=== PATIENT | male | born 1990 | race Caucasian/White ===

== ENCOUNTER 2017-04-11 10:46 | Inpatient (IN) ==
--- NOTE | 2017-04-11 11:18 | Emergency Department Note ---
Disposition Clinical Impression: Suicidal ideation, Auditory hallucination, Visual hallucination Disposition: Admitted As Inpatient Condition: Good Referrals: NONE,PCP [Primary Care Provider] - Forms: ED Satisfaction Letter Time of Disposition: 14:13 Psych HPI - General Chief Complaint: ED Psychiatric Symptoms Stated Complaint: Hearing Voices Time Seen by Provider: 04/11/17 10:55 Source: patient Mode of arrival: ambulatory Limitations: no limitations Nursing Notes Reviewed: Yes Vital Signs Reviewed: Yes - History of Present Illness HPI Narrative: 27 year old male with extensive pysch history presents to the ED with complaints of hearing voices and that those voice are telling him to kill himself. He states that they show him images of him hanging himself in the hess and telling him to do it. He states that he has had these voices for the past 1.5 years and has admitted multiple admission to the pysch unit here. Amandeep states that he is concerned that he will go through with the plan. No other complaint at this time. - Related Data Previous Rx's Medication Instructions Recorded Venlafaxine HCl [Effexor Xr] 75 mg PO DAILY #30 [id number] 01/17/16 Allergies Allergy/AdvReac Type Severity Reaction Status Date / Time No Known Allergies Allergy Verified 12/27/15 08:30 Constitutional: Denies: fever, chills, weakness, weight change Eyes: Denies: eye pain, eye discharge, vision change ENT ED: Denies: ear pain, throat pain, dental pain, hearing loss, epistaxis, congestion, dysphagia Cardiovascular: Denies: chest pain, palpitations, dyspnea on exertion, edema, syncope Respiratory: Denies: cough, dyspnea, wheezes, hemoptysis, stridor Gastrointestinal: Denies: abdominal pain, nausea, vomiting, diarrhea, constipation, hematemesis, melena, hematochezia Genitourinary: Denies: urgency, dysuria, frequency, hematuria Musculoskeletal: Denies: back pain, neck pain, arthralgia, myalgia Integumentary: Denies: rash, abrasion, lesions Neurological: Denies: headache, weakness, numbness, paresthesias, confusion, abnormal gait, vertigo Psychiatric: Reports: suicidal thoughts, auditory hallucinations, visual hallucinations. Denies: anxiety, depression, homicidal thoughts Endocrine: Denies: fatigue Hematological/Lymphatic: Denies: easy bleeding, easy bruising Allergic/Immunologic: Denies: facial swelling, urticaria Past Medical History - Past Medical History Medical history: Reports: no medical history Surgical history: Reports: no surgical history Psychiatric history: Reports: anxiety, schizophrenia, previous psychiatric hospitalization - Social History Smoking Status: Current every day smoker Smokeless Tobacco Status: No Alcohol use: Reports: occasionally Drug use: Reports: cocaine Physical Exam - General Limitations: no limitations General appearance: alert, in no apparent distress - Head Head exam: atraumatic, normocephalic, normal inspection - Eye Eye exam: Present: normal appearance, PERRL, EOMI - Expanded Eye Exam Pupils: Left: reactive - ENT ENT exam: normal exam, normal oropharynx, mucous membranes moist - Expanded ENT Exam External ear exam: Present: normal external inspection Mouth exam: Present: normal external inspection Teeth exam: Present: normal inspection Throat exam: Present: normal inspection - Neck Neck exam: Present: normal inspection, full ROM, trachea midline - Chest Chest inspection: Present: normal inspection, symmetric chest wall rise - Respiratory Respiratory exam: Present: normal lung sounds bilaterally - Cardiovascular Cardiovascular exam: Present: regular rate, normal rhythm, normal heart sounds - Abdominal Exam Abdominal exam: Present: soft, Non-Tender. Absent: tenderness, distention, guarding, rebound, rigidity - Extremities Exam Extremities exam: Present: normal inspection, full ROM. Absent: tenderness, pedal edema - Expanded Upper Extremity Exam Shoulder exam: Present: normal inspection, full ROM Arm exam: Present: normal inspection, full ROM Elbow exam: Present: normal inspection, full ROM Forearm/Wrist exam: Present: normal inspection, full ROM Hand exam: Present: normal inspection, full ROM Vascular exam: Normal: capillary refill, radial pulse - Expanded Lower Extremity Exam Hip/Pelvis exam: Present: normal inspection, full ROM Upper leg exam: Present: normal inspection, full ROM Knee exam: Present: normal inspection, full ROM Lower leg exam: Present: normal inspection, full ROM Ankle exam: Present: normal inspection, full ROM Foot/toe exam: Present: normal inspection, full ROM Neurovascular/Tendon exam: Absent: motor deficit, sensory deficit, tendon deficit - Back Exam Back exam: Present: normal inspection, full ROM. Absent: tenderness - Neurological Exam Neurological exam: Present: alert, oriented X3 - Expanded Neurological Exam Patient oriented to: Present: person, place, time Coma Scale Eye Opening: Spontaneous Coma Scale Motor Response: Obeys Commands Coma Scale Verbal Response: Oriented Coma Scale Total: 15 - Psychiatric Psychiatric exam: Present: normal affect, normal mood - Skin Skin exam: Present: warm, dry, intact, normal color Course Course Narrative: we will do medical clearance including a HCT and then consult 1A - Reevaluation(s) Reevaluation #1: amandeep is medically cleared. 1A consult has been placed. Time: 12:31 - Consultations Consultation #1: [facility] has acepted patient for admission. Time: 14:12 Vital Signs Temperature 99.3 F 04/11/17 10:50 Pulse Rate 106 04/11/17 10:50 Respiratory Rate 16 04/11/17 10:50 Blood Pressure 134/84 04/11/17 10:50 O2 Sat by Pulse Oximetry 96 04/11/17 10:50 Temperature 99.3 F 04/11/17 10:50 Pulse Rate 106 04/11/17 10:50 Respiratory Rate 16 04/11/17 10:50 Blood Pressure 134/84 04/11/17 10:50 O2 Sat by Pulse Oximetry 96 04/11/17 10:50 Oxygen Delivery Oxygen Delivery Room Air Psych - Lab Data Result diagrams: 04/11/17 11:12 04/11/17 11:12 Lab Results 04/11/17 04/11/17 04/11/17 Range/Units 11:12 11:12 11:30 WBC 5.6 (4.3-11.1) K/mcL RBC 4.43 (4.19-5.50) M/mcL Hgb 13.2 (12.9-16.9) g/dL Hct 39.8 (37.5-50.1) % MCV 89.8 (83.0-100.0) fL MCH 29.8 (28.0-33.3) pg MCHC 33.2 (31.6-35.5) g/dL RDW 12.4 (11.5-14.5) % Plt Count 380 (140-400) K/mcL MPV 9.9 (9.4-12.4) fL Immature Gran % 0.5 (0-4) % Seg Neutrophils % 71.6 % Lymphocytes % 13.7 % Monocytes % 13.0 % Eosinophils % 0.7 % Basophils % 0.5 % Neutrophils # 4.0 (1.6-8.9) K/mcL Lymphocytes # 0.8 (0.6-4.6) K/mcL Monocytes # 0.7 (0.0-1.3) K/mcL Eosinophils # 0.0 (0.0-0.6) K/mcL Basophils # 0.0 (0.0-0.2) K/mcL Immature Plt Fraction 3.2 (1.1-6.1) % Sodium 137 (136-145) mEq/L Potassium 3.4 L (3.5-4.5) mEq/L Chloride 101 (98-109) mEq/L Carbon Dioxide 26 (19-29) mEq/L BUN 10 (8-26) mg/dL Creatinine 1.01 (0.72-1.25) mg/dL Est GFR ( Amer) > 60 (> 60) Est GFR (Non-Af Amer) > 60 (> 60) BUN/Creatinine Ratio 10 (6-26) Glucose 84 (70-99) mg/dL Calculated Osmolality 282 (280-300) Calcium 9.7 (8.6-10.8) mg/dL Urine Color Dark Yellow (Yellow) Urine Clarity Cloudy A (Clear) Urine pH 6.0 (5.0-8.0) pH Units Ur Specific Powell > 1.030 H (1.010-1.025) Urine Protein 100 H (Neg-Trace) mg/dL Urine Glucose (UA) Normal (Normal) mg/dL Urine Ketones Trace H (Negative) mg/dL Urine Blood Moderate H (Negative) Urine Nitrite Negative (Negative) Urine Bilirubin Small H (Negative) Urine Urobilinogen Normal (Normal) mg/dL Ur Leukocyte Esterase Negative (Negative) Urine Microscopic RBC 15-30 H (0-3) per hpf Urine Microscopic WBC 0-3 (0-3) per hpf Ur Squamous Epith Cells Many H (None-Few) per lpf Urine Bacteria None Seen (None-Few) per hpf Hyaline Casts Test Not Performed Urine Mucus Moderate H (Few) Salicylates < 5.0 L (15-30) mg/dL Urine Opiates Screen (Pyqzem=737) ng/mL Acetaminophen < 1.0 L (10-30) mcg/mL Ur Barbiturates Screen (Rlorhv=608) ng/mL Ur Phencyclidine Scrn (Cutoff=25) ng/mL Ur Amphetamines Screen (Okvwkm=1470) ng/mL U Benzodiazepines Scrn (Owiqle=273) ng/mL Urine Cocaine Screen (Cutoff= 300) ng/mL U Marijuana (THC) Screen (Cutoff = 50) ng/mL Ethyl Alcohol < 10 (0-10) mg/dL 04/11/17 Range/Units 11:30 WBC (4.3-11.1) K/mcL RBC (4.19-5.50) M/mcL Hgb (12.9-16.9) g/dL Hct (37.5-50.1) % MCV (83.0-100.0) fL MCH (28.0-33.3) pg MCHC (31.6-35.5) g/dL RDW (11.5-14.5) % Plt Count (140-400) K/mcL MPV (9.4-12.4) fL Immature Gran % (0-4) % Seg Neutrophils % % Lymphocytes % % Monocytes % % Eosinophils % % Basophils % % Neutrophils # (1.6-8.9) K/mcL Lymphocytes # (0.6-4.6) K/mcL Monocytes # (0.0-1.3) K/mcL Eosinophils # (0.0-0.6) K/mcL Basophils # (0.0-0.2) K/mcL Immature Plt Fraction (1.1-6.1) % Sodium (136-145) mEq/L Potassium (3.5-4.5) mEq/L Chloride (98-109) mEq/L Carbon Dioxide (19-29) mEq/L BUN (8-26) mg/dL Creatinine (0.72-1.25) mg/dL Est GFR ( Amer) (> 60) Est GFR (Non-Af Amer) (> 60) BUN/Creatinine Ratio (6-26) Glucose (70-99) mg/dL Calculated Osmolality (280-300) Calcium (8.6-10.8) mg/dL Urine Color (Yellow) Urine Clarity (Clear) Urine pH (5.0-8.0) pH Units Ur Specific Powell (1.010-1.025) Urine Protein (Neg-Trace) mg/dL Urine Glucose (UA) (Normal) mg/dL Urine Ketones (Negative) mg/dL Urine Blood (Negative) Urine Nitrite (Negative) Urine Bilirubin (Negative) Urine Urobilinogen (Normal) mg/dL Ur Leukocyte Esterase (Negative) Urine Microscopic RBC (0-3) per hpf Urine Microscopic WBC (0-3) per hpf Ur Squamous Epith Cells (None-Few) per lpf Urine Bacteria (None-Few) per hpf Hyaline Casts Urine Mucus (Few) Salicylates (15-30) mg/dL Urine Opiates Screen Negative (Tnpgaj=781) ng/mL Acetaminophen (10-30) mcg/mL Ur Barbiturates Screen Negative (Qsxlfg=002) ng/mL Ur Phencyclidine Scrn Negative (Cutoff=25) ng/mL Ur Amphetamines Screen Negative (Wsruis=1930) ng/mL U Benzodiazepines Scrn Negative (Vxxpxj=914) ng/mL Urine Cocaine Screen Negative (Cutoff= 300) ng/mL U Marijuana (THC) Screen Negative (Cutoff = 50) ng/mL Ethyl Alcohol (0-10) mg/dL Psychiatric Medical Clearance - Medical Clearance Checklist Medical History: No Social History Section defined Current Vitals: Last Vital Signs Temp 99.3 F 04/11/17 10:50 Pulse 106 04/11/17 10:50 Resp 16 04/11/17 10:50 BP 134/84 04/11/17 10:50 Pulse Ox 96 04/11/17 10:50 Psychiatric Lab Panel: Drug Levels and Toxicity 04/11/17 04/11/17 11:12 11:30 Urine Opiates Screen Negative Acetaminophen < 1.0 L Ur Barbiturates Screen Negative Ur Phencyclidine Scrn Negative Ur Amphetamines Screen Negative U Benzodiazepines Scrn Negative Urine Cocaine Screen Negative U Marijuana (THC) Screen Negative Ethyl Alcohol < 10 Abnormal Labs: Abnormal lab results Potassium 3.4 mEq/L (3.5-4.5) L 04/11/17 11:12 Urine Clarity Cloudy (Clear) A 04/11/17 11:30 Ur Specific Powell > 1.030 (1.010-1.025) H 04/11/17 11:30 Urine Protein 100 mg/dL (Neg-Trace) H 04/11/17 11:30 Urine Ketones Trace mg/dL (Negative) H 04/11/17 11:30 Urine Blood Moderate (Negative) H 04/11/17 11:30 Urine Bilirubin Small (Negative) H 04/11/17 11:30 Urine Microscopic RBC 15-30 per hpf (0-3) H 04/11/17 11:30 Ur Squamous Epith Cells Many per lpf (None-Few) H 04/11/17 11:30 Urine Mucus Moderate (Few) H 04/11/17 11:30 Salicylates < 5.0 mg/dL (15-30) L 04/11/17 11:12 Acetaminophen < 1.0 mcg/mL (10-30) L 04/11/17 11:12 Statement of Medical Clearance: I have evaluated the patient, reviewed diagnostic information, and certify that the patient's medical condition is sufficiently stable that transfer to the psychiatric unit does not pose a significant risk of deterioration.
[2017-04-11 11:25] LABS: Basophils % 0.5 %; Eosinophils % 0.7 %; Hematocrit 39.8 % (37.5-50.1); Hemoglobin 13.2 g/dL (12.9-16.9); Immature Granulocytes % 0.5 % (0-4); Immature Platelets 3.2 % (1.1-6.1); Lymphocytes # 0.8 K/mcL (0.6-4.6); Lymphocytes % 13.7 %; Mean Corpuscular HGB Conc 33.2 g/dL (31.6-35.5); Mean Corpuscular Hemoglobin 29.8 pg (28.0-33.3); Mean Corpuscular Volume 89.8 fL (83.0-100.0); Mean Platelet Volume 9.9 fL (9.4-12.4); Monocytes # 0.7 K/mcL (0.0-1.3); Platelet Count 380 K/mcL (140-400); Red Blood Count 4.43 M/mcL (4.19-5.50); Red Cell Distribution Width 12.4 % (11.5-14.5); Segmented Neutrophils % 71.6 %
[2017-04-11 11:36] LABS: BUN/Creatinine Ratio 10 (6-26); Blood Urea Nitrogen 10 mg/dL (8-26); Calcium 9.7 mg/dL (8.6-10.8); Carbon Dioxide 26 mEq/L (19-29); Chloride 101 mEq/L (98-109); Glucose 84 mg/dL (70-99); Osmolality,Calculated 282 (280-300); Potassium 3.4 mEq/L (3.5-4.5); Sodium 137 mEq/L (136-145); eGFR For African Americans > 60 (> 60); eGFR For Non-African Americans > 60 (> 60)
[2017-04-11 11:37] LABS: Acetaminophen < 1.0 mcg/mL (10-30); Ethanol < 10 mg/dL (0-10); Salicylate < 5.0 mg/dL (15-30)
[2017-04-11 11:43] LABS: Amphetamine Screen,Urine Negative ng/mL (Cutoff=1000); Barbiturate Screen,Urine Negative ng/mL (Cutoff=200); Benzodiazepines Screen,Urine Negative ng/mL (Cutoff=200); Bilirubin,Urine Small (Negative); Blood,Urine Moderate (Negative); Cannabinoid Screen,Urine Negative ng/mL (Cutoff = 50); Clarity,Urine Cloudy (Clear); Cocaine Screen,Urine Negative ng/mL (Cutoff= 300); Color,Urine Dark Yellow (Yellow); Glucose,Urine (UA) Normal (Normal); Ketones,Urine Trace mg/dL (Negative); Leukocyte Esterase,Urine Negative (Negative); Nitrite,Urine Negative (Negative); Opiate Screen,Urine Negative ng/mL (Cutoff=300); Phencyclidine Screen,Urine Negative ng/mL (Cutoff=25); Protein,Urine 100 mg/dL (Neg-Trace); Specific Gravity,Urine > 1.030 (1.010-1.025); Urobilinogen,Urine Normal (Normal)
[2017-04-11 11:45] LABS: Bacteria,Urine None Seen per hpf (None-Few); RBC,Urine 15-30 per hpf (0-3); Squamous Epithelial Cell,Urine Many per lpf (None-Few); WBC,Urine 0-3 per hpf (0-3)
[2017-04-11 11:47] LABS: Mucus,Urine Moderate (Few)
[2017-04-11] MEDS ORDERED: *HR* LORazepam 2 MG/ML VIAL IM PRN (16:43)
[2017-04-11] MEDS ORDERED: MOM Conc 10 ML UD.LIQ PO PRN (16:43)
[2017-04-11] MEDS ORDERED: *HR* LORazepam 1 MG TABLET PO PRN (16:43)
[2017-04-11] MEDS ORDERED: hydrOXYzine pamoate 25 MG CAPSULE PO PRN (16:43)
[2017-04-11] MEDS ORDERED: Haloperidol Lactate 5 MG/ML VIAL IM PRN (16:43)
[2017-04-11] MEDS ORDERED: Acetaminophen 325 MG TABLET PO PRN (16:43)
[2017-04-11] MEDS ORDERED: Mag Hydrox/Al Hydrox/Simeth 30 ML UDC PO PRN (16:43)
[2017-04-11] MEDS ORDERED: traZODone 50 MG TABLET PO PRN (16:43)
--- NOTE | 2017-04-12 14:31 | Psychiatry History & Physical ---
Date of Encounter: 04/12/17 Time of Encounter: 14:28 History of Present Illness Patient Stated Chief Complaint: "i was hearing voices telling me to kill myself " Medicare Admission Attestation: For traditional Medicare patients the provided hospital inpatient services are reasonable and necessary and in the case of services not specified as inpatient -only under 42 CFR 419.22 (n), that they are appropriately provided as inpatient services in accordance 42 CFR 412.3. For Critical Access Hospital the patient may reasonably be expected to be discharged or transferred to a hospital within 96 hours after admission to the Critical Access Hospital. Admitted From: Emergency Dept History of Present Illness: Mr. Smith is a 27 year old male admitted to [facility] for safety and stabalization. On approach this morning patient was as bad he was not cooperative to come for evaluation patient was a very poor historian very vague when answering questions patient reports he is here at the hospital because he was "hearing voices telling me to kill myself" patient reports he has been hearing these voices for the past year and a half patient was not able to report any current stressors or triggers he reports he does have family but he is not in connection with any of them he reports he is homeless patient reports that he has been hearing these voices and has tried multiple medications the past which she is not able to remember what he was on or what works for him and then reports that "none of the medications work". Went through a list of medications with patient and patient reported that he has not tried Prolixin once that was mentioned him patient was in agreement to try this as well. Past Med Surg Social Fam HX - Past Medical History Medical history: no medical history - Past Psychiatric History Psychiatric history: Reports: schizophrenia, previous psychiatric hospitalization Past psychiatric history details: inpatient hospitalizations: pt reports he was hospitalized on 1A before SA: pt reports 1 yaer ago he "took a razor to my arm" Past psych meds: "all of them" Current psych meds: denies Pt reports he is homeless - Past Surgical History Surgical History: no surgical history - Social History Smoking Status: Current every day smoker Smokeless Tobacco Status: No Alcohol use: occasionally Drug use: cocaine Medications & Allergies No Known Home Drugs 04/11/17 [History] 3 Allergy/AdvReac Type Severity Reaction Status Date / Time No Known Allergies Allergy Verified 12/27/15 08:30 Review of Systems Psychiatric: Reports: abnormal sleep pattern, auditory hallucinations, difficulty concentrating, irritability, mood swings Mental Status Exam Patient orientation: Yes Person, Yes Time, Yes Place Level of alertness: Other Patient appearance: Unkempt Behavior: anxious, uncooperative Psychomotor activity: Slowed Eye contact: Minimal Contact Mood description: Anxious, Labile, Irritable Affect description: flat Thought process: Loose Associations, Tangential Thought content: Yes Suicidal ideation, Yes Preoccupation Perceptual disturbances: Yes Auditory hallucinations Attention span: Unable to Focus, Unable to Sustain Attention Memory description: Immediate Impaired, Recent Impaired Patient reliability: Questionable Historian Exam - HEENT Head exam IM: Present: normal inspection Eye exam IM: Present: EOMI - Neurological Neurological exam IM: Present: alert Results - Vital Signs Vital signs: Temp Pulse Resp BP Pulse Ox 98.4 F 68 16 126/72 96 04/12/17 09:00 04/12/17 09:00 04/12/17 09:00 04/12/17 09:00 04/11/17 10:50 - Labs Labs: Laboratory Last Values WBC 5.6 K/mcL (4.3-11.1) 04/11/17 11:12 RBC 4.43 M/mcL (4.19-5.50) 04/11/17 11:12 Hgb 13.2 g/dL (12.9-16.9) 04/11/17 11:12 Hct 39.8 % (37.5-50.1) 04/11/17 11:12 MCV 89.8 fL (83.0-100.0) 04/11/17 11:12 MCH 29.8 pg (28.0-33.3) 04/11/17 11:12 MCHC 33.2 g/dL (31.6-35.5) 04/11/17 11:12 RDW 12.4 % (11.5-14.5) 04/11/17 11:12 Plt Count 380 K/mcL (140-400) 04/11/17 11:12 MPV 9.9 fL (9.4-12.4) 04/11/17 11:12 Immature Gran % 0.5 % (0-4) 04/11/17 11:12 Seg Neutrophils % 71.6 % 04/11/17 11:12 Lymphocytes % 13.7 % 04/11/17 11:12 Monocytes % 13.0 % 04/11/17 11:12 Eosinophils % 0.7 % 04/11/17 11:12 Basophils % 0.5 % 04/11/17 11:12 Neutrophils # 4.0 K/mcL (1.6-8.9) 04/11/17 11:12 Lymphocytes # 0.8 K/mcL (0.6-4.6) 04/11/17 11:12 Monocytes # 0.7 K/mcL (0.0-1.3) 04/11/17 11:12 Eosinophils # 0.0 K/mcL (0.0-0.6) 04/11/17 11:12 Basophils # 0.0 K/mcL (0.0-0.2) 04/11/17 11:12 Immature Plt Fraction 3.2 % (1.1-6.1) 04/11/17 11:12 Sodium 137 mEq/L (136-145) 04/11/17 11:12 Potassium 3.4 mEq/L (3.5-4.5) L 04/11/17 11:12 Chloride 101 mEq/L (98-109) 04/11/17 11:12 Carbon Dioxide 26 mEq/L (19-29) 04/11/17 11:12 BUN 10 mg/dL (8-26) 04/11/17 11:12 Creatinine 1.01 mg/dL (0.72-1.25) 04/11/17 11:12 Est GFR ( Amer) > 60 (> 60) 04/11/17 11:12 Est GFR (Non-Af Amer) > 60 (> 60) 04/11/17 11:12 BUN/Creatinine Ratio 10 (6-26) 04/11/17 11:12 Glucose 84 mg/dL (70-99) 04/11/17 11:12 Calculated Osmolality 282 (280-300) 04/11/17 11:12 Calcium 9.7 mg/dL (8.6-10.8) 04/11/17 11:12 Urine Color Dark Yellow (Yellow) 04/11/17 11:30 Urine Clarity Cloudy (Clear) A 04/11/17 11:30 Urine pH 6.0 pH Units (5.0-8.0) 04/11/17 11:30 Ur Specific Golden > 1.030 (1.010-1.025) H 04/11/17 11:30 Urine Protein 100 mg/dL (Neg-Trace) H 04/11/17 11:30 Urine Glucose (UA) Normal mg/dL (Normal) 04/11/17 11:30 Urine Ketones Trace mg/dL (Negative) H 04/11/17 11:30 Urine Blood Moderate (Negative) H 04/11/17 11:30 Urine Nitrite Negative (Negative) 04/11/17 11:30 Urine Bilirubin Small (Negative) H 04/11/17 11:30 Urine Urobilinogen Normal mg/dL (Normal) 04/11/17 11:30 Ur Leukocyte Esterase Negative (Negative) 04/11/17 11:30 Urine Microscopic RBC 15-30 per hpf (0-3) H 04/11/17 11:30 Urine Microscopic WBC 0-3 per hpf (0-3) 04/11/17 11:30 Ur Squamous Epith Cells Many per lpf (None-Few) H 04/11/17 11:30 Urine Bacteria None Seen per hpf (None-Few) 04/11/17 11:30 Hyaline Casts Test Not Performed 04/11/17 11:30 Urine Mucus Moderate (Few) H 04/11/17 11:30 Salicylates < 5.0 mg/dL (15-30) L 04/11/17 11:12 Urine Opiates Screen Negative ng/mL (Uvfkml=389) 04/11/17 11:30 Acetaminophen < 1.0 mcg/mL (10-30) L 04/11/17 11:12 Ur Barbiturates Screen Negative ng/mL (Jrrfep=360) 04/11/17 11:30 Ur Phencyclidine Scrn Negative ng/mL (Cutoff=25) 04/11/17 11:30 Ur Amphetamines Screen Negative ng/mL (Aaioxo=7043) 04/11/17 11:30 U Benzodiazepines Scrn Negative ng/mL (Wswskn=694) 04/11/17 11:30 Urine Cocaine Screen Negative ng/mL (Cutoff= 300) 04/11/17 11:30 U Marijuana (THC) Screen Negative ng/mL (Cutoff = 50) 04/11/17 11:30 Ethyl Alcohol < 10 mg/dL (0-10) 04/11/17 11:12 Assessment and Plan (1) Schizophrenia Current visit: Yes Status: Acute Plan: Admit inpatient for safety and stabilization, Suicide Precautions per unit protocol, Encourage participation in unit milieu, Group Therapy, Monitor sleep, Monitor appetite Risks, benefits, side effects, alternatives discussed w/pt: Yes Patient agreeable to treatment: Yes Estimated Length of Stay (Days ): 7 Qualifiers: Schizophrenia type: unspecified Qualified Code(s): F20.9 - Schizophrenia, unspecified
--- NOTE | 2017-04-13 09:38 | Psychiatry Progress Note ---
Date of Encounter: 04/13/17 Time of Encounter: 09:36 Subjective Interval history: Patient seen and evaluated this morning patient was and his bad patient was a poor historian and very guarded when answering questions continues to state that he is still hearing voices and he is feeling suicidal. Patient reports that he is feeling the same since admission patient has been med compliant per staff no when necessary's required for agitation or aggression. Review of Systems Psychiatric: Reports: abnormal sleep pattern, auditory hallucinations, difficulty concentrating, irritability, mood swings Objective: Exam Patient orientation: Yes Person, Yes Time Level of alertness: Other Patient appearance: Unkempt Behavior: anxious, uncooperative, guarded Psychomotor activity: Slowed Eye contact: Minimal Contact Mood description: Depressed, Anxious, Labile, Irritable Affect description: flat Thought process: Tangential Thought content: Yes Suicidal ideation Perceptual disturbances: Yes Auditory hallucinations Judgment: Limited Insight: Minimal Results - Vital Signs Vital Signs: Temp Pulse Resp BP Pulse Ox 97.9 F 56 14 111/69 96 04/13/17 09:00 04/13/17 09:00 04/13/17 09:00 04/13/17 09:00 04/11/17 10:50 Assessment and Plan (1) Schizophrenia Current visit: Yes Status: Acute Plan: Continue hospitalization, Encourage participation in unit milieu, Group Therapy, Monitor sleep, Monitor appetite Risks, benefits, side effects, alternatives discussed w/pt: Yes Patient agreeable to treatment: Yes Qualifiers: Schizophrenia type: unspecified Qualified Code(s): F20.9 - Schizophrenia, unspecified Consult Discharge Plan - Plan Referrals: NONE,PCP [Primary Care Provider] -
--- NOTE | 2017-04-14 13:35 | Psychiatry Progress Note ---
Date of Encounter: 04/14/17 Time of Encounter: 01:33 Subjective Interval history: Patient seen and interviewed. History and physical examination reviewed. Patient is not doing well. He is reporting of hearing voices. He refused the medications. I encouraged him to remain compliant with the medications. Appeared guarded and paranoid suspicious. His reporting of at times feeling confused and having "messed up thoughts". Patient is needing redirections. I encouraged him to attend groups and participate in activities. Review of Systems Psychiatric: Reports: abnormal sleep pattern, auditory hallucinations, difficulty concentrating, irritability, mood swings Objective: Exam Patient orientation: Yes Person, Yes Time, Yes Place Level of alertness: Alert Patient appearance: Unkempt, Disheveled Behavior: guarded, suspicious Psychomotor activity: Slowed Eye contact: Maintains Eye Contact Mood description: Anxious Affect description: blunted, dysphoric Speech pattern: Slowed, Delayed Speech volume: Soft/Quiet Thought process: Linear, Goal Oriented Thought content: Yes Ideas of reference, Yes Paranoid delusion Perceptual disturbances: Yes Auditory hallucinations Judgment: Limited Insight: Minimal Results - Vital Signs Vital Signs: Temp Pulse Resp BP Pulse Ox 98.2 F 67 14 96/67 96 04/14/17 09:00 04/14/17 09:00 04/14/17 09:00 04/14/17 09:00 04/11/17 10:50 Assessment and Plan (1) Schizophrenia Current visit: Yes Status: Acute Plan: Continue hospitalization, Close observation, Suicide Precautions per unit protocol, Encourage participation in unit milieu, Group Therapy, Monitor sleep, Monitor appetite Risks, benefits, side effects, alternatives discussed w/pt: Yes Patient agreeable to treatment: Yes Qualifiers: Schizophrenia type: unspecified Qualified Code(s): F20.9 - Schizophrenia, unspecified Consult Discharge Plan - Plan Referrals: NONE,PCP [Primary Care Provider] -
--- NOTE | 2017-04-15 13:30 | Psychiatry Progress Note ---
Date of Encounter: 04/15/17 Time of Encounter: 01:15 Subjective Interval history: Patient seen and interviewed. Started to notice improvement in his mood. More cooperative spontaneous and engaged. Is still somewhat isolative in his room. Auditory hallucinations that started to become less intense and less frequent however he is still reporting of hearing them. They are not commanding in nature anymore and not telling him to kill himself. He is denying any suicidal ideations. His ADLs are still poor and he is needing redirection's. He has been compliant with his medications and tolerating them fairly well. I encouraged him to attend groups and participate in activities and work on a safety plan. Review of Systems Psychiatric: Reports: auditory hallucinations, difficulty concentrating Objective: Exam Patient orientation: Yes Person, Yes Time, Yes Place Level of alertness: Alert Patient appearance: Unkempt, Disheveled Behavior: anxious, guarded Psychomotor activity: Normal Eye contact: Maintains Eye Contact Mood description: Anxious Affect description: constricted Speech pattern: Normal rate, Normal rhythm, Normal tone Speech volume: Normal Thought process: Linear, Goal Oriented Thought content: No Suicidal ideation, No Homicidal ideation, No Overt delusions Perceptual disturbances: Yes Auditory hallucinations Judgment: Fair Insight: Partial Results - Vital Signs Vital Signs: Temp Pulse Resp BP Pulse Ox 97.8 F 53 16 115/67 96 04/15/17 09:00 04/15/17 09:00 04/15/17 09:00 04/15/17 09:00 04/11/17 10:50 Assessment and Plan (1) Schizophrenia Current visit: Yes Status: Acute Plan: Continue hospitalization, Close observation, Suicide Precautions per unit protocol, Encourage participation in unit milieu, Group Therapy, Monitor sleep, Monitor appetite Additional Plan: Continue with the current regime of medications. Possible discharge in a day or 2. Risks, benefits, side effects, alternatives discussed w/pt: Yes Patient agreeable to treatment: Yes Qualifiers: Schizophrenia type: unspecified Qualified Code(s): F20.9 - Schizophrenia, unspecified Consult Discharge Plan - Plan Referrals: NONE,PCP [Primary Care Provider] -
--- NOTE | 2017-04-16 13:19 | Psychiatry Progress Note ---
Date of Encounter: 04/16/17 Time of Encounter: 13:17 Subjective Interval history: Patient seen and evaluated this morning patient did not seem to be in any acute distress. Patient reports that he feels he is doing much better since admission. Patient reports that his voices have improved since admission and reports there are 4 out of 10 with 10 being the worst. Patient has been medication compliant patient has been sleeping and eating appropriately. Patient reports that he is not able to get ahold of his dad and he reports he would like to be discharged he will homosexual. Patient reports he would like to be discharged today per patient was agreeable to wait until tomorrow until social services director team and made arrangements for his discharge. Review of Systems Psychiatric: Reports: auditory hallucinations Objective: Exam Patient orientation: Yes Person, Yes Time, Yes Place Level of alertness: Alert Patient appearance: Appropriate Behavior: calm Psychomotor activity: Normal Eye contact: Maintains Eye Contact Mood description: Euthymic/stable Affect description: congruent with mood Speech pattern: Normal rate, Normal rhythm Thought process: Intact Thought content: Yes Intact Perceptual disturbances: Yes Auditory hallucinations Judgment: Fair Insight: Partial Results - Vital Signs Vital Signs: Temp Pulse Resp BP Pulse Ox 97.1 F L 68 16 113/73 96 04/16/17 09:00 04/16/17 09:00 04/16/17 09:00 04/16/17 09:00 04/11/17 10:50 Assessment and Plan (1) Schizophrenia Current visit: Yes Status: Acute Plan: Continue hospitalization, Group Therapy, Monitor sleep, Monitor appetite, Secure weapons Additional Plan: Continue with the current regime of medications. Possible discharge in a day or 2. Risks, benefits, side effects, alternatives discussed w/pt: Yes Patient agreeable to treatment: Yes Qualifiers: Schizophrenia type: unspecified Qualified Code(s): F20.9 - Schizophrenia, unspecified Consult Discharge Plan - Plan Referrals: NONE,PCP [Primary Care Provider] -
--- NOTE | 2017-04-17 16:10 | Discharge Summary ---
Date of Encounter: 04/18/17 Time of Encounter: 16:08 Diagnosis - Discharge Diagnosis (1) Schizophrenia Status: Acute Qualifiers: Schizophrenia type: unspecified Qualified Code(s): F20.9 - Schizophrenia, unspecified Medications - Discharge Medications Prescriptions: Fluphenazine [Prolixin] 2.5 mg PO BID #60 tab traZODone [TraZODone] 50 mg PO HS PRN #30 tab PRN Reason: Insomnia Fluphenazine [Prolixin] 2.5 mg PO BID #60 tab 04/17/17 [Rx] traZODone [TraZODone] 50 mg PO HS PRN #30 tab 04/17/17 [Rx] 3 Allergy/AdvReac Type Severity Reaction Status Date / Time No Known Allergies Allergy Verified 12/27/15 08:30 Provider Date of admission: 04/11/17 14:13 Primary care physician: PCP NONE Discharging clinician: Hemalatha Donovan Assessment and Plan - Patient/Caregiver Discharge Instructions Activity: resume usual activities as tolerated Diet: regular diet - Follow up Plan Follow up with: [facility] [Outside] (You are going into mental health respite at [facility] on discharge from the hospital. While there, clinic staff will open a case for you to become a client, and you will be seen daily by the clinic counselors and oil field caser, both individually and in group. You will also be scheduled to see the psychiatric provider for outpatient psychiatric assessment and medication management.) Overall status at discharge: Stable Disposition: Home, Self-Care Hospital Course Hospital course: Mr. Smith is a 27 year old male with shizophrenia admitted to [facility] inpatient psychiatric unit for safety and stabilization. Patient's home medications were continued and reviewed. Throughout the hospital course pt was started on prolixin to assist with mood symptom stabilization and auditory hallucinations Patient did not exhibit any side effects to medication he was med compliant while he was on the unit patient participated in groups and was socializing with peers. Patient's sleep and appetite was fair. Patient denied any suicide or homicide ideations. Patient denied any thoughts of self-harm. Patient reports being interested in outpatient medication management and counseling. Patient was discussed for discharge due to patient not being a threat to himself or anyone else. Patient will be returning respite on discharge. Time spent discussing smoking cessation with patient: 3 to 10 minutes Does patient wish to continue nicotine replacement upon disc: No - Time Spent with Patient Total time spent providing and/or coordinating discharge services: Less than 30 minutes Quality - Multiple Antipsychotics Patient discharged on 2 or more antipsychotic medications: No Procedures - Procedures Procedures: Medication Management, Crisis Stabilization, Supportive Therapy, Group Therapy Mental Status Exam - Mental Status Exam Patient orientation: Yes Person, Yes Time, Yes Place Level of alertness: Alert Patient appearance: Appropriate Behavior: calm Psychomotor activity: Normal Eye contact: Maintains Eye Contact Mood description: Euthymic/stable Affect description: congruent with mood Speech pattern: Normal rate, Normal rhythm, Normal tone Speech Volume: Normal Thought process: Intact Thought Content: Yes Intact Judgment: Fair Insight: Partial
[2017-04-18 10:48] VITALS: BP 110/70
== END 2017-04-18 12:05 | disposition home or self-care (01) | DRG 750 ==
LOC: EMEROO 10:46 → SUATTDRO 14:13 → 1ANU 14:13
PROVIDERS: ADMIT Psychiatry & Neurology Psychiatry; ATTEND Psychiatry & Neurology Psychiatry